=== PATIENT | female | born 1970 ===

== ENCOUNTER 2018-02-27 09:13 | Observation (INO) ==
[2018-02-27 10:12] VITALS: BMI 36.2
[2018-02-27] MEDS ORDERED: SALINE 3% 15 ML NEB TX NEB ONE (10:28)
[2018-02-27 10:44] LABS: BASOPHILS # (AUTO) 0.2 X10^3/uL (0.0-0.1); BASOPHILS % (AUTO) 0.9 % (0.2-1.0); EOSINOPHILS % (AUTO) 0.1 % (0.9-2.9); HEMATOCRIT 38.8 % (36.0-47.0); HEMOGLOBIN 13.4 g/dL (12.0-16.0); LYMPHOCYTES # (AUTO) 2.6 X10^3/uL (1.3-2.9); MEAN CORPUSCULAR HEMOGLOBIN 31.8 pg (27.0-34.0); MEAN CORPUSCULAR HGB CONC 34.4 g/dL (33.0-35.0); MEAN CORPUSCULAR VOLUME 92.3 fL (80.0-100.0); MEAN PLATELET VOLUME 7.2 fL (7.4-11.0); MONOCYTES # (AUTO) 1.3 x10^3/uL (0.3-0.8); MONOCYTES % (AUTO) 6.7 % (0.0-13.0); NEUTROPHILS # (AUTO) 15.6 x10^3/uL (2.2-4.8); NEUTROPHILS % (AUTO) 79.3 % (42.0-75.0); PLATELET COUNT 319 X10^3/uL (150.0-450.0); RED CELL DISTRIBUTION WIDTH 14.1 % (11.6-16.5); WHITE BLOOD COUNT 19.6 X10^3/uL (3.6-10.0)
[2018-02-27] MEDS ORDERED: NS 100 ML IV 100 ML IV ONE (10:47)
[2018-02-27] MEDS: LR 1000 ML IV 1,000 ML IV SCH ×3 (10:49→20:32)
[2018-02-27 10:53] LABS: ALANINE AMINOTRANSFERASE 27 Units/L (12-78); ALBUMIN 3.5 g/dL (3.4-5.0); ALKALINE PHOSPHATASE 76 Units/L (46-116); ASPARTATE AMINO TRANSFERASE 16 Units/L (15-37); BLOOD UREA NITROGEN 11 mg/dL (7-18); CALCIUM 9.2 mg/dL (8.5-10.1); CARBON DIOXIDE 29.8 mmol/L (21-32); CHLORIDE 100 mmol/L (98-107); COR NA(FOR HYPERGLY) 139 mmol/L (136-145); CREATININE 0.85 mg/dL (0.55-1.02); SODIUM 138 mmol/L (136-145); TOTAL PROTEIN 7.6 g/dL (6.4-8.2); eGFR NON BLACK RACES > 60 (>60)
[2018-02-27] MEDS: SYNTHROID 150 mcg TAB PO SCH (10:53)
[2018-02-27] MEDS: FLONASE NASAL SPRAY ENOSTRIL SCH (10:53)
[2018-02-27] MEDS: MERREM VIAL 1,000 MG in NS 100 ML IV + SPIKE MINIBAG* 100 ML IV SCH ×3 (10:53→21:13)
[2018-02-27] MEDS: TOPROL XL PO SCH (10:54)
[2018-02-27] MEDS: XOPENEX 1.25 MG/3 ML NEBULE NEB SCH ×2 (11:48→17:34)
[2018-02-27] MEDS ORDERED: PROVENTIL NEB TX 0.083% 2.5MG/ 3ML NEB SCH (13:00)
[2018-02-27] MEDS: TYLENOL 325 MG TAB PO PRN (15:54)
--- NOTE | 2018-02-27 18:05 | RAD ---
Exam: Chest two views History: 48-year-old female with cough and fever. Shortness of breath. Comparison: None Findings: Heart size and pulmonary vasculature are normal. Lungs are clear with no infiltrate or significant effusion on either side. Bony thorax is unremarkable as well. Impression: No acute cardiopulmonary abnormality is seen on this exam. Reported By:
[2018-02-28] MEDS: XOPENEX 1.25 MG/3 ML NEBULE NEB SCH ×4 (00:59→17:02)
[2018-02-28] MEDS: LR 1000 ML IV 1,000 ML IV SCH ×4 (04:50→18:08)
[2018-02-28] MEDS: TYLENOL 325 MG TAB PO PRN (04:50)
[2018-02-28] MEDS: MERREM VIAL 1,000 MG in NS 100 ML IV + SPIKE MINIBAG* 100 ML IV SCH ×3 (05:50→21:41)
[2018-02-28 06:14] LABS: BASOPHILS # (AUTO) 0.1 X10^3/uL (0.0-0.1); BASOPHILS % (AUTO) 0.5 % (0.2-1.0); EOSINOPHILS % (AUTO) 0.1 % (0.9-2.9); HEMATOCRIT 33.8 % (36.0-47.0); HEMOGLOBIN 11.3 g/dL (12.0-16.0); LYMPHOCYTES % (AUTO) 25.2 % (21.0-51.0); MEAN CORPUSCULAR HEMOGLOBIN 31.1 pg (27.0-34.0); MEAN CORPUSCULAR HGB CONC 33.5 g/dL (33.0-35.0); MEAN CORPUSCULAR VOLUME 92.9 fL (80.0-100.0); MEAN PLATELET VOLUME 7.6 fL (7.4-11.0); MONOCYTES # (AUTO) 1.1 x10^3/uL (0.3-0.8); MONOCYTES % (AUTO) 9.2 % (0.0-13.0); NEUTROPHILS # (AUTO) 7.8 x10^3/uL (2.2-4.8); PLATELET COUNT 256 X10^3/uL (150.0-450.0); RED BLOOD COUNT 3.63 X10^6/uL (3.5-5.4); RED CELL DISTRIBUTION WIDTH 14.4 % (11.6-16.5); WHITE BLOOD COUNT 12.1 X10^3/uL (3.6-10.0)
[2018-02-28 06:25] LABS: ALANINE AMINOTRANSFERASE 21 Units/L (12-78); ALBUMIN 2.6 g/dL (3.4-5.0); ALKALINE PHOSPHATASE 61 Units/L (46-116); ASPARTATE AMINO TRANSFERASE 13 Units/L (15-37); BLOOD UREA NITROGEN 10 mg/dL (7-18); CALCIUM 8.5 mg/dL (8.5-10.1); CARBON DIOXIDE 27.9 mmol/L (21-32); CHLORIDE 105 mmol/L (98-107); COR CA(FOR HYPOALB) 9.6 mg/dL (8.5-10.1); COR NA(FOR HYPERGLY) 142 mmol/L (136-145); CREATININE 0.72 mg/dL (0.55-1.02); SODIUM 141 mmol/L (136-145); TOTAL PROTEIN 6.3 g/dL (6.4-8.2); eGFR NON BLACK RACES > 60 (>60)
[2018-02-28] MEDS: SYNTHROID 150 mcg TAB PO SCH (08:07)
[2018-02-28] MEDS: FLONASE NASAL SPRAY ENOSTRIL SCH (08:08)
[2018-02-28] MEDS ORDERED: TOPROL XL PO SCH (09:00)
[2018-02-28] MEDS ORDERED: SYNTHROID 150 mcg TAB PO SCH (09:00)
[2018-02-28] MEDS: TOPROL XL PO SCH (09:16)
[2018-02-28] MEDS ORDERED: NS 100 ML IV 100 ML IV ONE (13:21)
[2018-02-28] MEDS ORDERED: GLUCOPHAGE ONE (18:09)
[2018-02-28] MEDS: GLUCOPHAGE PO SCH (18:12)
[2018-03-01] MEDS: XOPENEX 1.25 MG/3 ML NEBULE NEB SCH ×2 (01:04→06:02)
[2018-03-01] MEDS: LR 1000 ML IV 1,000 ML IV SCH ×2 (02:00→03:30)
[2018-03-01] MEDS: TYLENOL 325 MG TAB PO PRN (03:30)
[2018-03-01] MEDS ORDERED: GLUCOPHAGE ONE (05:37)
[2018-03-01] MEDS: MERREM VIAL 1,000 MG in NS 100 ML IV + SPIKE MINIBAG* 100 ML IV SCH (05:51)
[2018-03-01] MEDS: GLUCOPHAGE PO SCH (06:37)
[2018-03-01 07:36] LABS: BASOPHILS # (AUTO) 0.1 X10^3/uL (0.0-0.1); EOSINOPHILS # (AUTO) 0.1 x10^3/uL (0.0-0.2); EOSINOPHILS % (AUTO) 0.9 % (0.9-2.9); HEMATOCRIT 33.7 % (36.0-47.0); HEMOGLOBIN 11.3 g/dL (12.0-16.0); LYMPHOCYTES # (AUTO) 2.7 X10^3/uL (1.3-2.9); LYMPHOCYTES % (AUTO) 29.1 % (21.0-51.0); MEAN CORPUSCULAR HEMOGLOBIN 31.5 pg (27.0-34.0); MEAN CORPUSCULAR HGB CONC 33.6 g/dL (33.0-35.0); MEAN CORPUSCULAR VOLUME 93.7 fL (80.0-100.0); MEAN PLATELET VOLUME 7.5 fL (7.4-11.0); MONOCYTES # (AUTO) 0.7 x10^3/uL (0.3-0.8); MONOCYTES % (AUTO) 7.5 % (0.0-13.0); NEUTROPHILS # (AUTO) 5.8 x10^3/uL (2.2-4.8); NEUTROPHILS % (AUTO) 61.5 % (42.0-75.0); PLATELET COUNT 260 X10^3/uL (150.0-450.0); RED CELL DISTRIBUTION WIDTH 14.4 % (11.6-16.5); WHITE BLOOD COUNT 9.4 X10^3/uL (3.6-10.0)
[2018-03-01 07:46] LABS: ALANINE AMINOTRANSFERASE 22 Units/L (12-78); ALBUMIN 2.7 g/dL (3.4-5.0); ALKALINE PHOSPHATASE 62 Units/L (46-116); ASPARTATE AMINO TRANSFERASE 15 Units/L (15-37); BLOOD UREA NITROGEN 7 mg/dL (7-18); CALCIUM 8.6 mg/dL (8.5-10.1); CARBON DIOXIDE 26.9 mmol/L (21-32); CHLORIDE 106 mmol/L (98-107); COR CA(FOR HYPOALB) 9.6 mg/dL (8.5-10.1); COR NA(FOR HYPERGLY) 142 mmol/L (136-145); CREATININE 0.71 mg/dL (0.55-1.02); SODIUM 141 mmol/L (136-145); TOTAL PROTEIN 6.5 g/dL (6.4-8.2); eGFR NON BLACK RACES > 60 (>60)
[2018-03-01] MEDS: SYNTHROID 150 mcg TAB PO SCH (08:43)
[2018-03-01] MEDS: FLONASE NASAL SPRAY ENOSTRIL SCH (08:43)
[2018-03-01] MEDS: TOPROL XL PO SCH (08:43)
[2018-03-01 09:14] VITALS: BP 106/59
== END 2018-03-01 10:25 | disposition home or self-care (01) ==
LOC: MED/SURG
PROVIDERS: ADMIT Obstetrics & Gynecology Obstetrics; ATTEND Obstetrics & Gynecology Obstetrics
DX: R00.0 Tachycardia, unspecified; C81.70 Other Hodgkin lymphoma, unspecified site; J32.8 Other chronic sinusitis; J18.8 Other pneumonia, unspecified organism; D72.828 Other elevated white blood cell count; E03.8 Other specified hypothyroidism; E11.65 Type 2 diabetes mellitus with hyperglycemia; R50.9 Fever, unspecified; R51 Headache
CPT/HCPCS: 36415; 71020; 71046; 80053; 85025; 87040; 87070; 87205; 94640; 94669; 94760; A4222; G0378; J2185; J3490; J7050; J7120